=== PATIENT | female | born 1970 | race African-American/Black ===

== ENCOUNTER 2018-01-29 18:01 | Emergency (ER) | payer OTHER ==
[~2018-01-29] VITALS: Ht 182.9 cm; Wt 68.2 kg
[2018-01-29 18:15] VITALS: BP 137/89; TEMP 97.3
[2018-01-29] MEDS ORDERED: GLUCOPHAGE850 MG/TAB PO ×2 (18:34→18:35)
[2018-01-29 19:10] VITALS: PULSE 83
[2018-01-29] MEDS ORDERED: FLEXERIL 1010 MG/TAB PO (19:10)
== END 2018-01-29 19:16 | disposition home or self-care (01) ==
LOC: COL.ER 18:01
DX: S80.02XA Contusion of left knee, initial encounter (principal); S63.501A Unspecified sprain of right wrist, initial encounter; E11.9 Type 2 diabetes mellitus without complications; Z79.84 Long term (current) use of oral hypoglycemic drugs; V69.88XA Occupant (driver) (passenger) of heavy transport vehicle injured in other specified transport accidents, initial encounter